=== PATIENT | female | born 1940 | race Caucasian/White ===

== ENCOUNTER → 2017-08-31 | Outpatient (CLI) | payer MEDICARE, OTHER ==
[~2017-08-31] MED LIST: ASPI-757 PO; CALC-734 PO; CLIN300C99 PO; FLUT16SP19 NS; HYDR25SU51 RC; NIA500 PO; RALO60TA12 PO
--- NOTE | 2017-08-31 09:49 | RADIOLOGY IMAGING REPORT ---
[place] [facility] [place] Berry Prieto : 1940 MR: [id number] V: [id number] EXAM DATE: ORDERING PHYSICIAN: IVAN LYNN TECHNOLOGIST: Location: [facility] Patient: Berry Prieto : 1940 Visit/Account:[id number] Date of Sevice: 08/31/2017 DEXA Scan Clinical history: Osteopenia, breast cancer. Comparison: DEXA scan from 06/21/2015. LUMBAR SPINE: The bone mineral density (BMD) measured from L1-L4 correlates with a Z-score of 0.8 and a T-score of -1.1 which is osteopenia as defined by the World Health Organization. The corresponding risk of frac ture in the lumbar spine is 2-3 times increased compared with a young adult reference population. Th is value has decreased by 2.2 % since the prior study. More than 5% change is considered significant . HIP: Bone mineral density (BMD) measured in the LEFT total hip region correlates with a Z-score -0.4 and a T-score of -2.3 which is osteopenia as defined by the World Health Organization. The corresponding risk of fracture in the hip is 4-6 times increased compared to a young adult reference population. Th is value has decreased by 2.8 % since the prior study. More than 5% change is considered significant . T score left femoral neck -2.5 Bone mineral density (BMD) measured in the Femoral Neck region measures 0.684 g/cm?. IMPRESSION: 1. Lumbar spine: Osteopenia. There has been 2.2% decrease in the bone mineral density since the pre vious exam. 2. Left Total Hip: Osteopenia. There has been 2.8% decrease in the bone mineral density since the p revious exam. 3. Femoral Neck: Bone Mineral Density is 0.684 g/cm? The next DEXA scan of this patient should include the following sites: L1-L4 and the left hip. FRAX? WHO Fracture Risk Assessment Tool link: <http://www.shef.ac.uk/FRAX/tool.jsp?locationValue=9> PLEASE NOTE: 1) The World Health Organization defines low BMD as follows: T-score Normal > -1 Osteopenia < -1 and > -2.5 Osteoporosis < -2.5 without fractures Established osteoporosis < -2.5 with fractures 2) In general, you may wish to consider: Diagnosis Treatment Follow-up DEXA Normal BMD Prevention 2-3 years Osteopenia Prevention/therapy 1-2 years Osteoporosis Therapy Yearly 3) Fracture risk estimated from the T-score is more accurate for vertebral fractures (often spontane ous) than for hip fractures. Report Dictated By: Trixie Ritchie MD at 08/31/2017 9:43 AM Report E-Signed By: Trixie Ritchie MD at 08/31/2017 9:45 AM WSN:[email or web address]
== END ==
LOC: RAD 09:00
PROVIDERS: ATTEND Internal Medicine
DX: M85.89 Other specified disorders of bone density and structure, multiple sites (principal)
CPT/HCPCS: 77080

== ENCOUNTER 2017-10-01 11:28 | Outpatient (RCR) | payer MEDICARE, OTHER ==
[2017-10-01 11:38] VITALS: BP 174/90
--- NOTE | 2017-10-06 16:33 | ONCOLOGY FOLLOW UP NOTE ---
EVENT DATE: October 01, 2017 CHIEF COMPLAINT/REASON FOR VISIT Ms. Prieto is a pleasant 77-year-old female with breast cancer here for followup. HISTORY OF PRESENT ILLNESS Ms. Prieto returns. Overall she is doing well. We reviewed her bone density which was done in August, which does show osteopenia. We discussed the significance of this. We also discussed her labs in detail. Overall she is doing quite well. No signs of relapse at this time. No fevers, chills, weight change, concerning bone pain, shortness of breath, abdominal pain or any other concerns that would raise the risk or concern for relapse. ONCOLOGIC HISTORY Diagnosed with right-sided breast cancer in 1993, which was triple negative, treated with radical mastectomy, one of three lymph nodes positive and six months of CMF chemotherapy (cyclophosphamide, methotrexate and 5-FU). In 1990 she was diagnosed with an early stage breast cancer of the left breast, also triple negative, and had a modified radical mastectomy without any systemic treatment. In 1984 she had a total abdominal hysterectomy and bilateral salpingo-oophorectomy. Subsequently she was diagnosed with BRCA mutation with a deleterious mutation positive at 2594 delC. Subsequent osteopenia after her treatment. No other long-term effects from her chemotherapy. Due to her bilateral mastectomies, no imaging on the labs done annually. PAST MEDICAL HISTORY 1. Bilateral breast cancer. 2. BRCA mutation. 3. Osteoarthritis. 4. Pre-diabetes. 5. Hyperlipidemia. 6. Postmenopausal status. 7. History of colon polyp. 8. Osteopenia. PAST SURGICAL HISTORY 1. Bilateral radical mastectomies. 2. Two D and Cs. 3. Total abdominal hysterectomy and bilateral salpingo-oophorectomy in 1984 with discovery of benign fibroid tumors with that surgery. 4. Appendectomy in 1952. 5. History of ankle surgery in the . SOCIAL HISTORY The patient is , but has presented by herself today. She has three sons. 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 Nonsmoker. No alcohol use. FAMILY HISTORY Remarkable for breast cancer in two siblings. Also positive for heart disease, diabetes, dementia, and stroke in the family. REVIEW OF SYSTEMS CONSTITUTIONAL: No fevers, chills or weight change. HEENT: No headache or vision changes. CARDIOVASCULAR: No chest pain, dyspnea on exertion or edema. RESPIRATORY: No shortness of breath, wheeze or cough. GASTROINTESTINAL: No nausea, vomiting. GENITOURINARY: No dysuria or hematuria. MUSCULOSKELETAL: No weakness or joint pain. PSYCHIATRIC: No anxiety or depression. ENDOCRINE: No heat or cold intolerance. The remainder of the 14-point review of systems otherwise negative. PHYSICAL EXAMINATION VITAL SIGNS: Blood pressure 174/90, and I recommend she follow up with her primary care provider, Dr. Fried. Pulse 79, respiratory rate 16, temperature 97.9 Fahrenheit., oxygen saturation 90% on room air. Weight 62.2 kg. Pain 0/10 , fatigue 0/10. GENERAL: Stable condition, resting comfortably in the chair. CARDIOVASCULAR: Regular rate and rhythm. LUNGS: Clear. ABDOMEN: Soft, nontender. No masses. EXTREMITIES: No clubbing, cyanosis or edema. The remainder of the physical exam otherwise unremarkable today. IMPRESSION/REPORT/PLAN Ms. Prieto returns. She is a 77-year-old female with a history of breast cancer with currently no evidence of disease. We reviewed her bone density and labs. We will continue to follow up every six months. I answered all of her questions today. Billing Return visit level 3. Total time 20 minutes, counseling time 15 minutes. SOFIA
[2017-10-31] MEDS ORDERED: HYDR25SU51 RC (09:11)
== END 2017-11-14 13:15 | disposition home or self-care (01) ==
LOC: ONC 11:28
PROVIDERS: ATTEND Internal Medicine
DX: C50.919 Malignant neoplasm of unspecified site of unspecified female breast (principal)
CPT/HCPCS: 99212

== ENCOUNTER → 2018-11-06 | Outpatient (CLI) | payer MEDICARE, OTHER ==
[~2018-11-06] MED LIST changes: +CALC-635 PO; +CALC1TAB32 PO; +LACT1CAP6 PO; +ROSU10TA5 PO
[2018-11-06 13:45] LABS: PLATELET COUNT, AUTOMATED 226 K/uL (150-450)
== END ==
LOC: LAB 13:20
PROVIDERS: ATTEND Emergency Medicine
DX: G62.9 Polyneuropathy, unspecified (principal); M85.80 Other specified disorders of bone density and structure, unspecified site; R03.0 Elevated blood-pressure reading, without diagnosis of hypertension
CPT/HCPCS: 36415; 82306; 82607; 85025

== ENCOUNTER 2018-12-02 11:36 | Outpatient (RCR) | payer MEDICARE, OTHER ==
[2018-12-02 11:53] VITALS: BP 141/82
[2018-12-02] MEDS ORDERED: HYDR25SU35 RC (11:59)
[2018-12-02] MEDS ORDERED: CYA1000 PO (11:59)
[2018-12-02] MEDS ORDERED: LORA1TAB69 PO (11:59)
--- NOTE | 2018-12-03 06:36 | ONCOLOGY FOLLOW UP NOTE ---
EVENT DATE: December 02, 2018 CHIEF COMPLAINT/REASON FOR VISIT Ms. Prieto is a pleasant 78-year-old female with a history of breast cancer, here for followup. HISTORY OF PRESENT ILLNESS Ms. Prieto returns. Overall, she is doing well medically. She had a bone density done in August 2017 which shows osteopenia. This should be done every three years, approximately. No signs of relapse at this time. No fevers, chills, concerning lumps or bumps. No bone pain. No other concerns. Unfortunately, her middle son, who was in his 50s, in his sleep over the weekend. This has been very difficult for Ms. Prieto and her . Her is not present today, as he is quite struggling with this news. ONCOLOGIC HISTORY Diagnosed with right-sided breast cancer in 1993, which was triple negative, treated with radical mastectomy, one of three lymph nodes positive and six months of CMF chemotherapy (cyclophosphamide, methotrexate and 5-FU). In 1990 she was diagnosed with an early stage breast cancer of the left breast, also triple negative, and had a modified radical mastectomy without any systemic treatment. In 1984 she had a total abdominal hysterectomy and bilateral salpingo-oophorectomy. Subsequently she was diagnosed with BRCA mutation with a deleterious mutation positive at 2594 delC. Subsequent osteopenia after her treatment. No other long-term effects from her chemotherapy. Due to her bilateral mastectomies, no imaging on the labs done annually. PAST MEDICAL HISTORY 1. Bilateral breast cancer. 2. BRCA mutation. 3. Osteoarthritis. 4. Pre-diabetes. 5. Hyperlipidemia. 6. Postmenopausal status. 7. History of colon polyp. 8. Osteopenia. PAST SURGICAL HISTORY 1. Bilateral radical mastectomies. 2. Two D and Cs. 3. Total abdominal hysterectomy and bilateral salpingo-oophorectomy in 1984 with discovery of benign fibroid tumors with that surgery. 4. Appendectomy in 1952. 5. History of ankle surgery in the . SOCIAL HISTORY The patient is , but has presented by herself today. She has three sons. 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 Nonsmoker. No alcohol use. FAMILY HISTORY Remarkable for breast cancer in two siblings. Also positive for heart disease, diabetes, dementia, and stroke in the family. REVIEW OF SYSTEMS CONSTITUTIONAL: No fevers, chills or weight change. HEENT: No headache or vision changes. CARDIOVASCULAR: No chest pain, dyspnea on exertion or edema. RESPIRATORY: No shortness of breath, wheeze or cough. GASTROINTESTINAL: No nausea, vomiting. GENITOURINARY: No dysuria or hematuria. MUSCULOSKELETAL: No weakness or joint pain. PSYCHIATRIC: No anxiety or depression. ENDOCRINE: No heat or cold intolerance. The remainder of the 14-point review of systems is otherwise negative. PHYSICAL EXAMINATION VITAL SIGNS: Blood pressure 141/82, pulse 72, respiratory rate 16, temperature 97.9 Fahrenheit, oxygen saturation 94% on room air. Weight 61.6 kg, pain 0/10, fatigue 0/10. GENERAL: Stable condition, resting comfortably in the chair. HEENT: Normocephalic, atraumatic. CARDIOVASCULAR: Regular rate and rhythm. LUNGS: Clear. ABDOMEN: Soft and nontender. EXTREMITIES: Without clubbing, cyanosis, or edema. LYMPHATIC: No appreciable cervical, supraclavicular, or axillary adenopathy. The patient overall has an excellent exam. Remainder of physical exam unremarkable. IMPRESSION/REPORT/PLAN Ms. Prieto is a pleasant 78-year-old female with a history of breast cancer, but currently has no evidence of disease. She had breast cancer in 1984 and 1990. Status post bilateral mastectomies. She continues on preventive hormonal therapy and is doing well with this. She has a BRCA mutation. We will need to follow her osteopenia with a bone density every three years. She is due for it again in 2020. This could be done by our team or by her primary care team. Should continue calcium and vitamin D. Answered all of her questions today. BILLING Return visit level 3. Total time 20 minutes, counseling time 15. MTDD
[2018-12-03] MEDS ORDERED: ROSU10TA PO (08:24)
== END 2018-12-11 15:34 | disposition home or self-care (01) ==
LOC: ONC 11:36
PROVIDERS: ATTEND Internal Medicine
DX: C50.911 Malignant neoplasm of unspecified site of right female breast (principal); Z79.818 Long term (current) use of other agents affecting estrogen receptors and estrogen levels; Z92.21 Personal history of antineoplastic chemotherapy
CPT/HCPCS: 99212